=== PATIENT | female | born 1935 | race African-American/Black ===

== ENCOUNTER 2018-03-04 17:03 | Emergency (ER) | payer SELFPAY ==
[~2018-03-04] VITALS: Ht 160 cm; Wt 57.0 kg
[~2018-03-04 17:03] MED LIST: CALC1TAB17 PO; CLOP75TA33 PO; EZET1TAB36 PO; FEXO30OR PO; HYDR25TA PO; METO-539 PO; OMEP20CA10 PO; PANT40TA4 PO; POTA20TA34 PO; SUCR1TAB PO
[2018-03-04] MEDS ORDERED: LANS30CA55 PO (17:16)
[2018-03-04 18:09] LABS: BASOPHILS % 0.3 % (0.0-2.0); EOSINOPHILS % 0.1 % (0.0-5.0); HEMATOCRIT. 41.9 % (36.0-48.0); HEMOGLOBIN. 14.5 g/dL (12.0-16.0); LYMPHOCYTES % 10.7 % (20.0-50.0); MEAN CORPUSCULAR HEMOGLOBIN 32.5 pg (28.0-32.0); MEAN CORPUSCULAR VOLUME 94.3 fL (81.0-99.0); MEAN PLATELET VOLUME 7.8 fl (7.4-10.4); MONOCYTES % 7.1 % (2.0-8.0); NEUTROPHILS % 81.8 % (40.0-76.0); PLATELET 226 x1000/uL (130-400); RED BLOOD CELL COUNT 4.44 mill/uL (4.2-5.4); RED CELL DISTRIBUTION WIDTH 13.5 % (11.6-14.6)
[2018-03-04 18:13] LABS: INR 1.1; PARTIAL THROMBOPLASTIN TIME 28.5 sec (23.4-31.0)
[2018-03-04 19:04] LABS: CLARITY URINE CLOUDY (CLEAR); COLOR URINE YELLOW (YELLOW); KETONES URINE TRACE (NEGATIVE); LEUKOCYTE ESTERASE URINE 1+ (NEGATIVE); NITRITE URINE NEGATIVE (NEGATIVE); OCCULT BLOOD URINE 1+ (NEGATIVE); PROTEIN URINE NEGATIVE (NEGATIVE); SPECIFIC GRAVITY URINE 1.015 (1.005-1.030); UROBILINOGEN URINE 0.2 E.U./dL (0.2-1.0)
[2018-03-04 19:38] LABS: CHLORIDE 100 mEq/L (98-107)
[2018-03-04] MEDS ORDERED: ACETAMINOPHEN 325MG TABLET PO ONE (20:15)
[2018-03-04 20:28] VITALS: BP 166/70
== END 2018-03-04 20:31 | disposition home or self-care (01) ==
LOC: ER 17:03
DX: K62.5 Hemorrhage of anus and rectum (principal); E78.00 Pure hypercholesterolemia, unspecified; I25.10 Atherosclerotic heart disease of native coronary artery without angina pectoris; I10 Essential (primary) hypertension; K21.9 Gastro-esophageal reflux disease without esophagitis; Z95.5 Presence of coronary angioplasty implant and graft; Z88.0 Allergy status to penicillin; Z88.8 Allergy status to other drugs, medicaments and biological substances; Z91.041 Radiographic dye allergy status
CPT/HCPCS: 36415; 71045; 80053; 81003; 83690; 83880; 84484; 85025; 85610; 85730; 86850; 86900; 93005; 99285

== ENCOUNTER 2019-08-24 18:43 | Inpatient (IN) | payer BC ==
[~2019-08-24] VITALS: Ht 160 cm; Wt 52.2 kg
[~2019-08-24 18:43] MED LIST changes: +LANS30CA55 PO; -OMEP20CA10 PO; +OMEP20CA5 PO
[2019-08-24] MEDS ORDERED: IPRATROPIUM/ALBUTEROL 0.5-3(2.5)MG/3ML NEB HHN ONE (20:00)
[2019-08-24 21:58] LABS: INR 1.1; PARTIAL THROMBOPLASTIN TIME 29.9 sec (23.4-31.0); PROTHROMBIN TIME 11.4 sec (9.6-11.0)
[2019-08-24] MEDS ORDERED: LEVOFLOXACIN 750MG PREMIX 150 ML IV ONE (22:00)
[2019-08-24 22:45] LABS: BASOPHILS % 0.4 % (0.0-2.0); EOSINOPHILS % 0.6 % (0.0-5.0); HEMATOCRIT. 44.1 % (36.0-48.0); HEMOGLOBIN. 15.3 g/dL (12.0-16.0); LYMPHOCYTES % 37.1 % (20.0-50.0); MEAN CORPUSCULAR HEMOGLOBIN 32.1 pg (28.0-32.0); MEAN CORPUSCULAR VOLUME 92.5 fL (81.0-99.0); MEAN PLATELET VOLUME 6.9 fl (7.4-10.4); MONOCYTES % 10.3 % (2.0-8.0); NEUTROPHILS % 51.6 % (40.0-76.0); PLATELET 339 x1000/uL (130-400); RED BLOOD CELL COUNT 4.77 mill/uL (4.2-5.4); RED CELL DISTRIBUTION WIDTH 13.5 % (11.6-14.6)
[2019-08-24 22:47] LABS: CLARITY URINE CLEAR (CLEAR); COLOR URINE YELLOW (YELLOW); KETONES URINE 1+ (NEGATIVE); LEUKOCYTE ESTERASE URINE TRACE (NEGATIVE); NITRITE URINE NEGATIVE (NEGATIVE); OCCULT BLOOD URINE NEGATIVE (NEGATIVE); PH URINE 6.5 (4.5-8.0); PROTEIN URINE NEGATIVE (NEGATIVE); SPECIFIC GRAVITY URINE 1.012 (1.005-1.030); UROBILINOGEN URINE 0.2 E.U./dL (0.2-1.0)
[2019-08-24 22:47] LABS: CHLORIDE 87 mEq/L (98-107)
[2019-08-25 00:33] VITALS: BP 164/71
[2019-08-25] MEDS ORDERED: ACETAMINOPHEN 325MG TABLET PO PRN (02:00)
[2019-08-25] MEDS: POTASSIUM CHLORIDE 20MEQ TABLET SR PO SCH ×2 (02:32→09:48)
[2019-08-25] MEDS: CLONIDINE 0.1MG TABLET PO PRN (02:33)
[2019-08-25] MEDS ORDERED: VYT1080 MT (03:20)
[2019-08-25] MEDS: SUCRALFATE 1G TABLET PO SCH ×4 (06:25→20:40)
[2019-08-25] MEDS: PANTOPRAZOLE 40MG DR TABLET PO SCH (06:26)
[2019-08-25 08:00] VITALS: BP 114/48
[2019-08-25] MEDS: IPRATROPIUM/ALBUTEROL 0.5-3(2.5)MG/3ML NEB HHN SCH ×4 (09:11→20:00)
[2019-08-25] MEDS: CLOPIDOGREL 75MG TABLET PO SCH (09:49)
[2019-08-25] MEDS: METOPROLOL TARTRATE 50MG TABLET PO SCH ×2 (09:49→20:40)
[2019-08-25] MEDS: ENOXAPARIN 40MG/0.4ML SYR SUBCUT SCH (09:51)
[2019-08-25 09:59] LABS: BASOPHILS % 0.4 % (0.0-2.0); EOSINOPHILS % 0.4 % (0.0-5.0); HEMATOCRIT. 39.4 % (36.0-48.0); HEMOGLOBIN. 13.9 g/dL (12.0-16.0); LYMPHOCYTES % 28.5 % (20.0-50.0); MEAN CORPUSCULAR HEMOGLOBIN 32.3 pg (28.0-32.0); MEAN CORPUSCULAR VOLUME 91.7 fL (81.0-99.0); MEAN PLATELET VOLUME 6.9 fl (7.4-10.4); MONOCYTES % 12.8 % (2.0-8.0); NEUTROPHILS % 57.9 % (40.0-76.0); PLATELET 311 x1000/uL (130-400); RED CELL DISTRIBUTION WIDTH 13.2 % (11.6-14.6)
[2019-08-25 10:12] LABS: CHLORIDE 89 mEq/L (98-107)
[2019-08-25 10:18] LABS: LDL CHOLESTEROL 49 mg/dL (5-100)
[2019-08-25 10:19] LABS: HDL CHOLESTEROL 68 mg/dL (40-59)
[2019-08-25] MEDS: LEVOFLOXACIN 250MG TABLET PO SCH (14:41)
[2019-08-25] MEDS: SODIUM CHLORIDE 0.9% 1,000 ML IV SCH (18:02)
[2019-08-25 18:07] LABS: CHLORIDE 93 mEq/L (98-107)
[2019-08-25 20:00] VITALS: BP 135/56
[2019-08-25] MEDS: ATORVASTATIN CALCIUM 40MG TABLET PO SCH (20:40)
[2019-08-26] VITALS: BP 132/51
[2019-08-26 04:00] VITALS: BP 125/52
[2019-08-26] MEDS: SODIUM CHLORIDE 0.9% 1,000 ML IV SCH ×2 (04:04→17:00)
[2019-08-26] MEDS: IPRATROPIUM/ALBUTEROL 0.5-3(2.5)MG/3ML NEB HHN SCH ×6 (04:50→22:05)
[2019-08-26] MEDS: PANTOPRAZOLE 40MG DR TABLET PO SCH (06:34)
[2019-08-26] MEDS: SUCRALFATE 1G TABLET PO SCH ×4 (06:34→21:17)
[2019-08-26 08:00] VITALS: BP 154/60
[2019-08-26] MEDS: POTASSIUM CHLORIDE 20MEQ TABLET SR PO SCH (08:02)
[2019-08-26] MEDS: ENOXAPARIN 40MG/0.4ML SYR SUBCUT SCH (08:02)
[2019-08-26] MEDS: CLOPIDOGREL 75MG TABLET PO SCH (08:02)
[2019-08-26] MEDS: METOPROLOL TARTRATE 50MG TABLET PO SCH (08:03)
[2019-08-26] MEDS: LEVOFLOXACIN 250MG TABLET PO SCH (11:07)
[2019-08-26 11:24] LABS: BG BASE EXCESS -4.2 mmol/L (-2.0-2.0); BG CARBOXYHEMOGLOBIN 0.4 % (0.5-1.5); BG DEOXYHEMOGLOBIN 2.4 % (0.0-5.0); BG FRACTION INSPIRED OXYGEN 21; BG HCO3 ACT 18.8 mmol/L (22.0-26.0); BG METHEMOGLOBIN 0.1 % (0.0-1.5); BG OXYGEN SATURATION 97.6 % (92.0-98.5); BG OXYHEMOGLOBIN 97.1 % (94.0-97.0); BG PCO2 28.9 mmHg (35.0-45.0); BG PO2 100.4 mmHg (75.0-100.0); BG SAMPLE SITE LEFT BRACHIAL; BG TOTAL HEMOGLOBIN 13.9 g/dL (12.0-18.0); BG VENT MODE ROOM AIR
[2019-08-26 12:00] VITALS: BP 158/53
[2019-08-26] MEDS ORDERED: LIDOCAINE HCL/PF 1% 2ML VIAL ONE (13:32)
[2019-08-26] MEDS ORDERED: AMLODIPINE 5MG TABLET PO NR (15:30)
[2019-08-26 16:00] VITALS: BP 151/58
[2019-08-26] MEDS ORDERED: NAPROXEN 250MG TABLET PO NR (16:00)
[2019-08-26 16:18] LABS: CHLORIDE 101 mEq/L (98-107)
[2019-08-26 16:22] LABS: BASOPHILS % 0.7 % (0.0-2.0); EOSINOPHILS % 3.3 % (0.0-5.0); HEMATOCRIT. 39.2 % (36.0-48.0); HEMOGLOBIN. 13.4 g/dL (12.0-16.0); LYMPHOCYTES % 42.4 % (20.0-50.0); MEAN CORPUSCULAR HEMOGLOBIN 32.2 pg (28.0-32.0); MEAN CORPUSCULAR VOLUME 94.5 fL (81.0-99.0); MEAN PLATELET VOLUME 7.2 fl (7.4-10.4); NEUTROPHILS % 40.6 % (40.0-76.0); PLATELET 159 x1000/uL (130-400); RED BLOOD CELL COUNT 4.15 mill/uL (4.2-5.4); RED CELL DISTRIBUTION WIDTH 13.4 % (11.6-14.6)
[2019-08-26] MEDS ORDERED: METHYLPREDNISOLONE SOD SUCC 40 MG/ML VIAL IV SCH (17:00)
[2019-08-26 20:37] VITALS: BP 163/55
[2019-08-26] MEDS: ATORVASTATIN CALCIUM 40MG TABLET PO SCH (21:17)
[2019-08-26] MEDS: NAPROXEN 250MG TABLET PO SCH (21:18)
[2019-08-26] MEDS: METOPROLOL TARTRATE 25MG TABLET PO SCH (21:19)
[2019-08-27] MEDS: CLONIDINE 0.1MG TABLET PO PRN (00:26)
[2019-08-27 00:41] VITALS: BP 164/65
[2019-08-27 04:00] VITALS: BP 128/46
[2019-08-27] MEDS: SODIUM CHLORIDE 0.9% 1,000 ML IV SCH (07:06)
[2019-08-27] MEDS: SUCRALFATE 1G TABLET PO SCH ×2 (07:07→11:46)
[2019-08-27 07:19] LABS: HEMATOCRIT 37.5 % (36.0-48.0); HEMOGLOBIN 13.1 g/dL (12.0-16.0); MEAN CORPUSCULAR HEMOGLOBIN 32.2 pg (28.0-32.0); MEAN CORPUSCULAR VOLUME 92.3 fL (81.0-99.0); PLATELET 273 x1000/uL (130-400); RED BLOOD CELL COUNT 4.06 mill/uL (4.2-5.4); RED CELL DISTRIBUTION WIDTH 13.4 % (11.6-14.6)
[2019-08-27 07:23] LABS: CHLORIDE 106 mEq/L (98-107)
[2019-08-27] MEDS ORDERED: AMLODIPINE 5MG TABLET PO SCH (09:00)
[2019-08-27] MEDS ORDERED: FAMOTIDINE 20MG TABLET PO SCH (09:00)
[2019-08-27] MEDS ORDERED: GUAIFENESIN 200MG/10ML SUGAR FREE UDC PO PRN (09:00)
[2019-08-27] MEDS: METOPROLOL TARTRATE 25MG TABLET PO SCH (09:00)
[2019-08-27] MEDS: IPRATROPIUM/ALBUTEROL 0.5-3(2.5)MG/3ML NEB HHN SCH ×2 (09:18→13:18)
[2019-08-27] MEDS: POTASSIUM CHLORIDE 20MEQ TABLET SR PO SCH (09:28)
[2019-08-27] MEDS: CLOPIDOGREL 75MG TABLET PO SCH (09:29)
[2019-08-27] MEDS: ENOXAPARIN 40MG/0.4ML SYR SUBCUT SCH (09:29)
[2019-08-27] MEDS: NAPROXEN 250MG TABLET PO SCH (09:29)
[2019-08-27] MEDS: LEVOFLOXACIN 250MG TABLET PO SCH (11:46)
[2019-08-27 13:49] VITALS: BP 110/61
== END 2019-08-27 15:45 | disposition home or self-care (01) | DRG 641 ==
LOC: ER 18:43 → 6WST 22:28 → EDBEDREQ 22:30 → EDBEDREQTM 22:30 → ENRESERV 22:36
PROVIDERS: ADMIT Internal Medicine; ATTEND Internal Medicine
DX: E87.1 Hypo-osmolality and hyponatremia (principal); J06.9 Acute upper respiratory infection, unspecified; R07.89 Other chest pain; E78.00 Pure hypercholesterolemia, unspecified; E78.5 Hyperlipidemia, unspecified; E87.6 Hypokalemia; I10 Essential (primary) hypertension; I25.10 Atherosclerotic heart disease of native coronary artery without angina pectoris; K21.9 Gastro-esophageal reflux disease without esophagitis; K80.20 Calculus of gallbladder without cholecystitis without obstruction; T50.2X5A Adverse effect of carbonic-anhydrase inhibitors, benzothiadiazides and other diuretics, initial encounter; Y92.89 Other specified places as the place of occurrence of the external cause; Z79.899 Other long term (current) drug therapy; Z88.0 Allergy status to penicillin; Z88.8 Allergy status to other drugs, medicaments and biological substances; Z91.041 Radiographic dye allergy status
CPT/HCPCS: 36415; 36600; 71045; 71250; 80048; 80061; 81003; 82164; 82375; 82805; 83880; 84484; 85027; 93005; 93306; 93970; 96365; 99285; J1650; J1956; J3490; J7030; J7620

== ENCOUNTER 2022-06-23 14:40 | Inpatient (IN) | payer BC, MEDICARE ==
[~2022-06-23] VITALS: Ht 160 cm; Wt 45.8 kg
[~2022-06-23 14:40] MED LIST changes: -HYDR25TA PO; -METO-539 PO; +OMEP20CA14 PO; -OMEP20CA5 PO; -PANT40TA4 PO; +PANT40TA51 PO; -POTA20TA34 PO
[2022-06-23] MEDS ORDERED: MORPHINE SULFATE 4 MG/ML CPJ (NOT FOR IM USE) IV STA (16:56)
[2022-06-23] MEDS ORDERED: ONDANSETRON HCL 4MG/2ML INJ IV STA (16:56)
[2022-06-23] MEDS ORDERED: SODIUM CHLORIDE 0.9% 1,000 ML IV ONE (17:00)
[2022-06-23 18:00] LABS: PARTIAL THROMBOPLASTIN TIME 30.8 sec (23.4-31.0); PROTHROMBIN TIME 10.9 sec (9.6-11.0)
[2022-06-23 18:04] LABS: HEMOGLOBIN. 13.8 g/dL (12.0-16.0); MEAN CORPUSCULAR VOLUME 94.9 fL (81.0-99.0); MEAN PLATELET VOLUME 7.5 fl (7.4-10.4); PLATELET 234 x1000/uL (130-400); RED BLOOD CELL COUNT 4.32 mill/uL (4.2-5.4); RED CELL DISTRIBUTION WIDTH 13.4 % (11.6-14.6)
[2022-06-23 18:14] LABS: CHLORIDE 102 mEq/L (98-107)
[2022-06-23 20:08] LABS: PLATELET ESTIMATE NORMAL
[2022-06-24 01:30] VITALS: BP 149/66
[2022-06-24 04:00] VITALS: BP 164/59
[2022-06-24] MEDS ORDERED: LATA2.5D14 EACHEYE (07:21)
[2022-06-24] MEDS ORDERED: HYDR-4133 MT (07:21)
[2022-06-24] MEDS ORDERED: METO-539 MT (07:22)
[2022-06-24] MEDS ORDERED: POTA-205 MT (07:23)
[2022-06-24] MEDS ORDERED: MULT-1146 PO (07:24)
[2022-06-24] MEDS ORDERED: AMLO5TAB88 MT (07:24)
[2022-06-24 08:00] VITALS: BP 165/72
[2022-06-24 12:00] VITALS: BP 153/77
[2022-06-24] MEDS ORDERED: DEXTROSE 50% WATER 50ML SYRINGE IV PRN (13:30)
[2022-06-24] MEDS ORDERED: SUCR1TAB PO (13:38)
[2022-06-24] MEDS: PANTOPRAZOLE 40MG DR TABLET PO SCH (14:27)
[2022-06-24] MEDS: AMLODIPINE 5MG TABLET PO SCH (14:28)
[2022-06-24] MEDS: ENOXAPARIN 30MG/0.3ML SYR SUBCUT SCH (14:30)
[2022-06-24] MEDS: INSULIN LISPRO 100 UNITS/ML SUBCUT SCH ×2 (17:50→21:00)
[2022-06-24] MEDS: BLOOD SUGAR DIAGNOSTIC STRIP TEST SCH ×2 (17:59→20:57)
[2022-06-24] MEDS: SUCRALFATE 1G TABLET PO SCH ×2 (18:03→20:57)
[2022-06-24] MEDS: HYDRALAZINE HCL 10MG TABLET PO SCH (18:03)
[2022-06-24 19:56] VITALS: BP 154/74
[2022-06-24] MEDS: METOPROLOL TARTRATE 50MG TABLET PO SCH (20:57)
[2022-06-25 00:18] VITALS: BP 183/83
[2022-06-25] MEDS ORDERED: HYDROCODONE/ACETAMINOPHEN 5/325MG TABLET PO PRN (04:45)
[2022-06-25] MEDS ORDERED: NALOXONE HCL 0.4MG/ML VIAL IV PRN (04:45)
[2022-06-25 06:25] VITALS: BP 173/68
[2022-06-25] MEDS: PANTOPRAZOLE 40MG DR TABLET PO SCH (06:25)
[2022-06-25] MEDS: BLOOD SUGAR DIAGNOSTIC STRIP TEST SCH ×4 (06:25→21:00)
[2022-06-25] MEDS: INSULIN LISPRO 100 UNITS/ML SUBCUT SCH ×4 (07:50→21:00)
[2022-06-25 08:00] VITALS: BP 136/67
[2022-06-25] MEDS: DOCUSATE SODIUM 100MG CAPSULE PO SCH ×2 (09:31→18:38)
[2022-06-25] MEDS: SUCRALFATE 1G TABLET PO SCH ×4 (09:32→21:48)
[2022-06-25] MEDS: METOPROLOL TARTRATE 50MG TABLET PO SCH ×2 (09:32→21:49)
[2022-06-25] MEDS: HYDRALAZINE HCL 10MG TABLET PO SCH (09:32)
[2022-06-25] MEDS: AMLODIPINE 5MG TABLET PO SCH ×2 (09:32→21:48)
[2022-06-25 12:00] VITALS: BP 125/60
[2022-06-25] MEDS: HYDROCODONE/ACETAMINOPHEN 5/325MG TABLET PO PRN ×2 (12:03→21:48)
[2022-06-25 12:26] LABS: BASOPHILS % 0.3 % (0.0-2.0); HEMATOCRIT. 41.2 % (36.0-48.0); HEMOGLOBIN. 13.9 g/dL (12.0-16.0); LYMPHOCYTES % 20.4 % (20.0-50.0); MEAN CORPUSCULAR HEMOGLOBIN 31.9 pg (28.0-32.0); MEAN CORPUSCULAR VOLUME 94.2 fL (81.0-99.0); MEAN PLATELET VOLUME 7.6 fl (7.4-10.4); MONOCYTES % 12.3 % (2.0-8.0); PLATELET 243 x1000/uL (130-400); RED BLOOD CELL COUNT 4.38 mill/uL (4.2-5.4); RED CELL DISTRIBUTION WIDTH 13.5 % (11.6-14.6)
[2022-06-25 12:49] LABS: CHLORIDE 101 mEq/L (98-107)
[2022-06-25] MEDS: ENOXAPARIN 30MG/0.3ML SYR SUBCUT SCH (14:41)
[2022-06-25 16:00] VITALS: BP 118/51
[2022-06-25] MEDS: HYDRALAZINE HCL 25MG TABLET PO SCH (18:38)
[2022-06-26] MEDS: DIPHENHYDRAMINE 25MG CAPSULE PO PRN ×2 (01:48→21:49)
[2022-06-26] MEDS: PANTOPRAZOLE 40MG DR TABLET PO SCH (06:08)
[2022-06-26] MEDS: BLOOD SUGAR DIAGNOSTIC STRIP TEST SCH ×4 (06:08→21:49)
[2022-06-26] MEDS: HYDROCODONE/ACETAMINOPHEN 5/325MG TABLET PO PRN ×2 (06:08→13:04)
[2022-06-26] MEDS: INSULIN LISPRO 100 UNITS/ML SUBCUT SCH ×4 (07:50→21:00)
[2022-06-26] MEDS: METOPROLOL TARTRATE 50MG TABLET PO SCH ×2 (09:24→21:49)
[2022-06-26] MEDS: AMLODIPINE 5MG TABLET PO SCH ×2 (09:24→21:49)
[2022-06-26] MEDS: SUCRALFATE 1G TABLET PO SCH ×4 (09:24→21:49)
[2022-06-26] MEDS: HYDRALAZINE HCL 25MG TABLET PO SCH ×2 (09:25→18:03)
[2022-06-26] MEDS: DOCUSATE SODIUM 100MG CAPSULE PO SCH ×2 (09:33→18:03)
[2022-06-26 12:00] VITALS: BP 126/54
[2022-06-26] MEDS: ENOXAPARIN 30MG/0.3ML SYR SUBCUT SCH (12:56)
[2022-06-26 16:00] VITALS: BP 135/67
[2022-06-26 20:00] VITALS: BP 136/68
[2022-06-27] VITALS: BP 165/70
[2022-06-27] MEDS: HYDROCODONE/ACETAMINOPHEN 5/325MG TABLET PO PRN (01:43)
[2022-06-27 04:00] VITALS: BP 147/66
[2022-06-27] MEDS: BLOOD SUGAR DIAGNOSTIC STRIP TEST SCH ×4 (06:01→21:24)
[2022-06-27] MEDS: INSULIN LISPRO 100 UNITS/ML SUBCUT SCH ×4 (07:50→21:00)
[2022-06-27 08:00] VITALS: BP 146/64
[2022-06-27] MEDS: HYDRALAZINE HCL 25MG TABLET PO SCH ×2 (08:45→18:28)
[2022-06-27] MEDS: SUCRALFATE 1G TABLET PO SCH ×4 (08:45→21:00)
[2022-06-27] MEDS: DOCUSATE SODIUM 100MG CAPSULE PO SCH ×2 (08:45→18:27)
[2022-06-27] MEDS: METOPROLOL TARTRATE 50MG TABLET PO SCH ×2 (08:45→21:00)
[2022-06-27] MEDS: FAMOTIDINE 20MG TABLET PO SCH (08:46)
[2022-06-27] MEDS: AMLODIPINE 5MG TABLET PO SCH ×2 (08:46→21:00)
[2022-06-27 12:00] VITALS: BP 131/64
[2022-06-27] MEDS: ENOXAPARIN 30MG/0.3ML SYR SUBCUT SCH (13:19)
[2022-06-27 16:00] VITALS: BP 132/65
[2022-06-27 16:43] LABS: BASOPHILS % 0.3 % (0.0-2.0); EOSINOPHILS % 3.8 % (0.0-5.0); HEMATOCRIT. 38.7 % (36.0-48.0); HEMOGLOBIN. 13.1 g/dL (12.0-16.0); LYMPHOCYTES % 26.5 % (20.0-50.0); MEAN CORPUSCULAR VOLUME 94.4 fL (81.0-99.0); MEAN PLATELET VOLUME 7.2 fl (7.4-10.4); MONOCYTES % 13.7 % (2.0-8.0); NEUTROPHILS % 55.7 % (40.0-76.0); PLATELET 245 x1000/uL (130-400); RED BLOOD CELL COUNT 4.09 mill/uL (4.2-5.4); RED CELL DISTRIBUTION WIDTH 13.5 % (11.6-14.6)
[2022-06-27 17:00] LABS: CHLORIDE 102 mEq/L (98-107)
[2022-06-27 20:00] VITALS: BP 131/66
[2022-06-27] MEDS: DIPHENHYDRAMINE 25MG CAPSULE PO PRN (23:49)
[2022-06-28] VITALS (7 sets, daily range): BP systolic 121–183; BP diastolic 64–87
[2022-06-28 04:45] LABS: BASOPHILS % 0.5 % (0.0-2.0); EOSINOPHILS % 4.2 % (0.0-5.0); HEMATOCRIT. 42.3 % (36.0-48.0); HEMOGLOBIN. 14.5 g/dL (12.0-16.0); LYMPHOCYTES % 26.9 % (20.0-50.0); MEAN CORPUSCULAR HEMOGLOBIN 32.3 pg (28.0-32.0); MEAN CORPUSCULAR VOLUME 94.3 fL (81.0-99.0); MEAN PLATELET VOLUME 7.3 fl (7.4-10.4); MONOCYTES % 12.9 % (2.0-8.0); NEUTROPHILS % 55.5 % (40.0-76.0); PLATELET 242 x1000/uL (130-400); RED BLOOD CELL COUNT 4.48 mill/uL (4.2-5.4); RED CELL DISTRIBUTION WIDTH 13.6 % (11.6-14.6)
[2022-06-28 04:52] LABS: CHLORIDE 103 mEq/L (98-107)
[2022-06-28] MEDS: BLOOD SUGAR DIAGNOSTIC STRIP TEST SCH ×4 (06:06→20:18)
[2022-06-28] MEDS: INSULIN LISPRO 100 UNITS/ML SUBCUT SCH ×4 (07:50→20:17)
[2022-06-28] MEDS ORDERED: POTASSIUM CHLORIDE 20MEQ/PACKET PO NR (08:30)
[2022-06-28] MEDS: SUCRALFATE 1G TABLET PO SCH ×4 (08:33→20:17)
[2022-06-28] MEDS: HYDRALAZINE HCL 25MG TABLET PO SCH ×2 (08:41→17:49)
[2022-06-28] MEDS: AMLODIPINE 5MG TABLET PO SCH ×2 (08:41→20:17)
[2022-06-28] MEDS: METOPROLOL TARTRATE 50MG TABLET PO SCH ×2 (08:41→20:17)
[2022-06-28] MEDS: FAMOTIDINE 20MG TABLET PO SCH (08:41)
[2022-06-28] MEDS: DOCUSATE SODIUM 100MG CAPSULE PO SCH ×2 (08:42→17:48)
[2022-06-28] MEDS: ENOXAPARIN 30MG/0.3ML SYR SUBCUT SCH (13:22)
[2022-06-29] VITALS: BP 150/70
[2022-06-29 04:00] VITALS: BP 154/72
[2022-06-29] MEDS: BLOOD SUGAR DIAGNOSTIC STRIP TEST SCH ×4 (06:08→21:18)
[2022-06-29] MEDS ORDERED: VANCOMYCIN HCL 1 GM/VIAL ONE (07:19)
[2022-06-29 07:20] LABS: HEMATOCRIT 39.3 % (36.0-48.0); HEMOGLOBIN 13.6 g/dL (12.0-16.0); MEAN CORPUSCULAR HEMOGLOBIN 32.3 pg (28.0-32.0); MEAN CORPUSCULAR VOLUME 93.6 fL (81.0-99.0); PLATELET 283 x1000/uL (130-400); RED CELL DISTRIBUTION WIDTH 13.7 % (11.6-14.6)
[2022-06-29] MEDS ORDERED: LIDOCAINE HCL 1% 20ML VIAL (Pyxis) INJ ONE (07:20)
[2022-06-29] MEDS ORDERED: ETOMIDATE 2MG/ML 10ML VIAL IV ONE (07:39)
[2022-06-29] MEDS ORDERED: SUCCINYLCHOLINE CHLORIDE 200MG/10ML IV ONE (07:39)
[2022-06-29] MEDS ORDERED: ONDANSETRON HCL 4MG/2ML INJ ONE (07:39)
[2022-06-29] MEDS ORDERED: CEFAZOLIN SODIUM 1000MG/VIAL ONE (07:39)
[2022-06-29] MEDS ORDERED: GLYCOPYRROLATE 0.2 MG/ML 2ML VIAL ONE ×2 (07:39→09:03)
[2022-06-29] MEDS ORDERED: DEXAMETHASONE 4MG/ML 1ML VIAL ONE (07:39)
[2022-06-29] MEDS ORDERED: ROCURONIUM BROMIDE 10MG/ML VIAL 5ML IV ONE (07:39)
[2022-06-29] MEDS ORDERED: NEOSTIGMINE METHYLSULFATE 1MG/ML 10 ML VIAL ONE (07:39)
[2022-06-29] MEDS ORDERED: FENTANYL CITRATE/PF 50MCG/ML 2ML VIAL ONE (07:40)
[2022-06-29] MEDS ORDERED: MIDAZOLAM HCL 2 MG/2 ML VIAL ONE (07:40)
[2022-06-29] MEDS ORDERED: ONDANSETRON HCL 4MG/2ML INJ IV PRN ×2 (07:45→08:00)
[2022-06-29] MEDS ORDERED: MEPERIDINE HCL/PF 25MG/ML CPJ IV PRN (07:45)
[2022-06-29] MEDS ORDERED: LABETALOL 5MG/ML SYR 20 MG/4 ML SYRINGE IV PRN (07:45)
[2022-06-29] MEDS ORDERED: HYDROMORPHONE HCL/PF 2MG/ML CPJ IV PRN ×2 (07:45→08:00)
[2022-06-29] MEDS: INSULIN LISPRO 100 UNITS/ML SUBCUT SCH ×4 (07:50→21:00)
[2022-06-29] MEDS ORDERED: HYDROCODONE/ACETAMINOPHEN 5/325MG TABLET PO PRN (08:00)
[2022-06-29] MEDS ORDERED: CLINDAMYCIN 900 MG PREMIX 50 ML IV ONE (08:07)
[2022-06-29 08:09] LABS: CHLORIDE 101 mEq/L (98-107)
[2022-06-29] MEDS ORDERED: HYDROMORPHONE HCL/PF 2MG/ML CPJ ONE (08:31)
[2022-06-29] MEDS: HYDRALAZINE HCL 25MG TABLET PO SCH ×2 (09:00→18:23)
[2022-06-29] MEDS: SUCRALFATE 1G TABLET PO SCH ×4 (09:00→21:18)
[2022-06-29] MEDS ORDERED: NALOXONE HCL 0.4MG/ML VIAL IV PRN (11:15)
[2022-06-29 12:00] VITALS: BP 109/64
[2022-06-29] MEDS: METOPROLOL TARTRATE 50MG TABLET PO SCH ×2 (12:31→21:00)
[2022-06-29] MEDS: AMLODIPINE 5MG TABLET PO SCH ×2 (12:32→21:00)
[2022-06-29] MEDS: DOCUSATE SODIUM 100MG CAPSULE PO SCH ×2 (12:32→18:22)
[2022-06-29] MEDS: FAMOTIDINE 20MG TABLET PO SCH (12:32)
[2022-06-29] MEDS: ENOXAPARIN 30MG/0.3ML SYR SUBCUT SCH (12:39)
[2022-06-29 16:00] VITALS: BP 121/61
[2022-06-29] MEDS ORDERED: CLINDAMYCIN 600 MG in DEXTROSE 5% WATER 50 ML IV SCH (16:00)
[2022-06-29] MEDS: CLINDAMYCIN 600MG PREMIX 50 ML IV SCH (18:22)
[2022-06-29] MEDS: HYDROCODONE/ACETAMINOPHEN 5/325MG TABLET PO PRN (18:23)
[2022-06-29 20:00] VITALS: BP 107/52
[2022-06-30] VITALS: BP 124/61
[2022-06-30] MEDS: CLINDAMYCIN 600MG PREMIX 50 ML IV SCH ×3 (01:28→16:45)
[2022-06-30 04:00] VITALS: BP 145/63
[2022-06-30 07:40] LABS: BASOPHILS % 0.2 % (0.0-2.0); EOSINOPHILS % 0.2 % (0.0-5.0); HEMATOCRIT. 38.9 % (36.0-48.0); HEMOGLOBIN. 13.2 g/dL (12.0-16.0); LYMPHOCYTES % 13.1 % (20.0-50.0); MEAN CORPUSCULAR HEMOGLOBIN 32.5 pg (28.0-32.0); MEAN CORPUSCULAR VOLUME 95.6 fL (81.0-99.0); MEAN PLATELET VOLUME 7.5 fl (7.4-10.4); MONOCYTES % 13.1 % (2.0-8.0); NEUTROPHILS % 73.4 % (40.0-76.0); PLATELET 266 x1000/uL (130-400); RED BLOOD CELL COUNT 4.07 mill/uL (4.2-5.4); RED CELL DISTRIBUTION WIDTH 13.6 % (11.6-14.6)
[2022-06-30] MEDS: INSULIN LISPRO 100 UNITS/ML SUBCUT SCH ×4 (07:50→21:00)
[2022-06-30] MEDS: BLOOD SUGAR DIAGNOSTIC STRIP TEST SCH ×4 (07:50→20:47)
[2022-06-30 08:00] VITALS: BP 144/61
[2022-06-30 08:34] LABS: CHLORIDE 102 mEq/L (98-107)
[2022-06-30] MEDS: DOCUSATE SODIUM 100MG CAPSULE PO SCH ×2 (08:46→16:44)
[2022-06-30] MEDS: FAMOTIDINE 20MG TABLET PO SCH (08:46)
[2022-06-30] MEDS: HYDRALAZINE HCL 25MG TABLET PO SCH ×2 (08:46→16:45)
[2022-06-30] MEDS: METOPROLOL TARTRATE 50MG TABLET PO SCH ×2 (08:46→20:47)
[2022-06-30] MEDS: SUCRALFATE 1G TABLET PO SCH ×4 (08:47→20:47)
[2022-06-30] MEDS: AMLODIPINE 5MG TABLET PO SCH ×2 (08:47→20:46)
[2022-06-30 12:00] VITALS: BP 94/59
[2022-06-30] MEDS: ENOXAPARIN 30MG/0.3ML SYR SUBCUT SCH (14:04)
[2022-06-30] MEDS: HYDROCODONE/ACETAMINOPHEN 5/325MG TABLET PO PRN (14:04)
[2022-06-30 16:00] VITALS: BP 121/58
[2022-06-30 20:00] VITALS: BP 122/78
[2022-07-01] VITALS: BP 149/64
[2022-07-01] MEDS: HYDROCODONE/ACETAMINOPHEN 5/325MG TABLET PO PRN ×3 (00:31→12:40)
[2022-07-01 04:00] VITALS: BP 99/61
[2022-07-01] MEDS: BLOOD SUGAR DIAGNOSTIC STRIP TEST SCH ×4 (06:34→20:30)
[2022-07-01 07:24] LABS: CHLORIDE 99 mEq/L (98-107)
[2022-07-01 07:25] LABS: BASOPHILS % 0.4 % (0.0-2.0); EOSINOPHILS % 2.5 % (0.0-5.0); HEMATOCRIT. 38.1 % (36.0-48.0); HEMOGLOBIN. 12.8 g/dL (12.0-16.0); LYMPHOCYTES % 22.5 % (20.0-50.0); MEAN CORPUSCULAR VOLUME 95.4 fL (81.0-99.0); MONOCYTES % 13.8 % (2.0-8.0); NEUTROPHILS % 60.8 % (40.0-76.0); RED CELL DISTRIBUTION WIDTH 13.7 % (11.6-14.6)
[2022-07-01] MEDS: INSULIN LISPRO 100 UNITS/ML SUBCUT SCH ×4 (07:50→20:31)
[2022-07-01 08:00] VITALS: BP 148/67
[2022-07-01 08:49] LABS: PLATELET 259 x1000/uL (130-400)
[2022-07-01] MEDS: DOCUSATE SODIUM 100MG CAPSULE PO SCH ×2 (09:04→19:03)
[2022-07-01] MEDS: AMLODIPINE 5MG TABLET PO SCH ×2 (09:07→20:30)
[2022-07-01] MEDS: FAMOTIDINE 20MG TABLET PO SCH (09:07)
[2022-07-01] MEDS: HYDRALAZINE HCL 25MG TABLET PO SCH (09:07)
[2022-07-01] MEDS: SUCRALFATE 1G TABLET PO SCH ×4 (09:07→20:30)
[2022-07-01] MEDS: METOPROLOL TARTRATE 50MG TABLET PO SCH ×2 (09:07→20:30)
[2022-07-01 12:00] VITALS: BP 121/54
[2022-07-01] MEDS: ENOXAPARIN 30MG/0.3ML SYR SUBCUT SCH (14:29)
[2022-07-01 16:00] VITALS: BP 146/67
[2022-07-01] MEDS: HYDRALAZINE HCL 50MG TABLET PO SCH (19:05)
[2022-07-02] VITALS: BP 169/73
[2022-07-02 04:00] VITALS: BP 156/80
[2022-07-02] MEDS: INSULIN LISPRO 100 UNITS/ML SUBCUT SCH ×4 (06:53→20:57)
[2022-07-02] MEDS: BLOOD SUGAR DIAGNOSTIC STRIP TEST SCH ×4 (06:53→20:57)
[2022-07-02 07:56] LABS: BASOPHILS % 0.2 % (0.0-2.0); EOSINOPHILS % 3.9 % (0.0-5.0); HEMATOCRIT. 39.4 % (36.0-48.0); HEMOGLOBIN. 13.7 g/dL (12.0-16.0); LYMPHOCYTES % 22.8 % (20.0-50.0); MEAN CORPUSCULAR HEMOGLOBIN 32.8 pg (28.0-32.0); MEAN CORPUSCULAR VOLUME 94.1 fL (81.0-99.0); MEAN PLATELET VOLUME 7.7 fl (7.4-10.4); NEUTROPHILS % 61.1 % (40.0-76.0); PLATELET 308 x1000/uL (130-400); RED BLOOD CELL COUNT 4.19 mill/uL (4.2-5.4); RED CELL DISTRIBUTION WIDTH 13.6 % (11.6-14.6)
[2022-07-02 08:00] VITALS: BP 151/71
[2022-07-02] MEDS: DOCUSATE SODIUM 100MG CAPSULE PO SCH ×2 (08:53→18:08)
[2022-07-02] MEDS: HYDRALAZINE HCL 50MG TABLET PO SCH ×2 (08:53→18:07)
[2022-07-02] MEDS: SUCRALFATE 1G TABLET PO SCH ×4 (08:54→20:54)
[2022-07-02] MEDS: AMLODIPINE 5MG TABLET PO SCH ×2 (08:54→20:55)
[2022-07-02] MEDS: FAMOTIDINE 20MG TABLET PO SCH (08:54)
[2022-07-02] MEDS: METOPROLOL TARTRATE 50MG TABLET PO SCH ×2 (08:54→20:56)
[2022-07-02 10:11] LABS: CHLORIDE 102 mEq/L (98-107)
[2022-07-02 10:22] LABS: HDL CHOLESTEROL 57 mg/dL (40-59); LDL CHOLESTEROL 96 mg/dL (5-100)
[2022-07-02 12:00] VITALS: BP 137/75
[2022-07-02] MEDS: ENOXAPARIN 30MG/0.3ML SYR SUBCUT SCH (14:19)
[2022-07-02 16:00] VITALS: BP 104/53
[2022-07-02 20:00] VITALS: BP 130/51
[2022-07-02] MEDS: HYDROCODONE/ACETAMINOPHEN 5/325MG TABLET PO PRN (20:52)
[2022-07-03] VITALS: BP 122/62
[2022-07-03 04:00] VITALS: BP 138/71
[2022-07-03] MEDS: BLOOD SUGAR DIAGNOSTIC STRIP TEST SCH ×2 (07:20→12:20)
[2022-07-03] MEDS: INSULIN LISPRO 100 UNITS/ML SUBCUT SCH ×2 (07:50→12:50)
[2022-07-03 08:00] VITALS: BP 132/79
[2022-07-03] MEDS: FAMOTIDINE 20MG TABLET PO SCH (08:22)
[2022-07-03] MEDS: HYDRALAZINE HCL 50MG TABLET PO SCH (08:22)
[2022-07-03] MEDS: DOCUSATE SODIUM 100MG CAPSULE PO SCH (08:22)
[2022-07-03] MEDS: SUCRALFATE 1G TABLET PO SCH (08:22)
[2022-07-03] MEDS: AMLODIPINE 5MG TABLET PO SCH (08:23)
[2022-07-03] MEDS: METOPROLOL TARTRATE 50MG TABLET PO SCH (08:23)
[2022-07-03 12:00] VITALS: BP 124/59
[2022-07-03 14:16] VITALS: BP 127/76
== END 2022-07-03 15:00 | DRG 480 ==
LOC: ER 15:37 → MICUSO 22:06 → EDBEDREQ 22:09 → EDBEDREQTM 22:09 → 6EST 06-24 00:11
PROVIDERS: ADMIT Internal Medicine; ATTEND Internal Medicine
PROC: 0QH634Z Insertion of Internal Fixation Device into Right Upper Femur, Percutaneous Approach (ICD-10-PCS; principal; 2022-06-29)
DX: S72.011A Unspecified intracapsular fracture of right femur, initial encounter for closed fracture (principal); E43 Unspecified severe protein-calorie malnutrition; Z68.1 Body mass index [BMI] 19.9 or less, adult; E11.9 Type 2 diabetes mellitus without complications; E78.00 Pure hypercholesterolemia, unspecified; F03.A0 Unspecified dementia, mild, without behavioral disturbance, psychotic disturbance, mood disturbance, and anxiety; K21.9 Gastro-esophageal reflux disease without esophagitis; I25.10 Atherosclerotic heart disease of native coronary artery without angina pectoris; Z20.822 Contact with and (suspected) exposure to COVID-19; E78.5 Hyperlipidemia, unspecified; E88.09 Other disorders of plasma-protein metabolism, not elsewhere classified; E87.6 Hypokalemia; I11.9 Hypertensive heart disease without heart failure; Z88.0 Allergy status to penicillin; Z79.899 Other long term (current) drug therapy; Z87.11 Personal history of peptic ulcer disease; Z79.02 Long term (current) use of antithrombotics/antiplatelets; Z88.8 Allergy status to other drugs, medicaments and biological substances; Z95.5 Presence of coronary angioplasty implant and graft; W01.0XXA Fall on same level from slipping, tripping and stumbling without subsequent striking against object, initial encounter; Y93.89 Activity, other specified; Y92.89 Other specified places as the place of occurrence of the external cause; Y99.8 Other external cause status
CPT/HCPCS: 36415; 71045; 73502; 73552; 73700; 76000; 80048; 80053; 80061; 82962; 83036; 84484; 85025; 85027; 86850; 86900; 87426; 93005; 93306; 93970; 97116; 97162; 97166; 97530; 97535; 99285; C1713; J0330; J0690; J1100; J1170; J1650; J2250; J2270; J2310; J2405; J2710; J3010; J3370; J3490; J7030; J7060; Q0163; A4315

== ENCOUNTER 2022-10-13 18:56 | Emergency (ER) | payer BC, MEDICARE ==
[~2022-10-13] VITALS: Ht 170.2 cm; Wt 59.0 kg
[~2022-10-13 18:56] MED LIST changes: +AMLO5TAB88 MT; +HYDR-4133 MT; +LATA2.5D14 EACHEYE; +METO-539 MT; +MULT-1146 PO; +POTA-205 MT
[2022-10-13 20:00] VITALS: BP 124/54
[2022-10-13] MEDS ORDERED: DEXT 5%/LACTATED RINGERS 1,000 ML IV ONE (20:00)
[2022-10-13] MEDS ORDERED: ONDANSETRON HCL 4MG/2ML INJ IV ONE (20:00)
[2022-10-13] MEDS ORDERED: SODIUM CHLORIDE 0.9% 1,000 ML IV ONE (20:45)
[2022-10-13 21:36] LABS: BASOPHILS % 0.4 % (0.0-2.0); CHLORIDE 108 mEq/L (98-107); HEMATOCRIT. 39.4 % (36.0-48.0); HEMOGLOBIN. 13.6 g/dL (12.0-16.0); LYMPHOCYTES % 15.6 % (20.0-50.0); MEAN CORPUSCULAR HEMOGLOBIN 31.8 pg (28.0-32.0); MEAN CORPUSCULAR VOLUME 92.4 fL (81.0-99.0); MEAN PLATELET VOLUME 7.1 fl (7.4-10.4); MONOCYTES % 7.3 % (2.0-8.0); NEUTROPHILS % 75.7 % (40.0-76.0); PLATELET 262 x1000/uL (130-400); RED BLOOD CELL COUNT 4.26 mill/uL (4.2-5.4); RED CELL DISTRIBUTION WIDTH 13.7 % (11.6-14.6)
[2022-10-13 23:07] LABS: CLARITY URINE CLOUDY (CLEAR); COLOR URINE DARK YELLOW (YELLOW); KETONES URINE TRACE (NEGATIVE); LEUKOCYTE ESTERASE URINE 1+ (NEGATIVE); NITRITE URINE NEGATIVE (NEGATIVE); OCCULT BLOOD URINE NEGATIVE (NEGATIVE); PH URINE 6.5 (4.5-8.0); PROTEIN URINE TRACE (NEGATIVE); SPECIFIC GRAVITY URINE 1.023 (1.005-1.030)
[2022-10-14] MEDS ORDERED: CEPH500C2 MT (00:44)
== END 2022-10-14 01:15 | disposition home or self-care (01) ==
LOC: ER 18:56
DX: R55 Syncope and collapse (principal); I25.10 Atherosclerotic heart disease of native coronary artery without angina pectoris; F03.90 Unspecified dementia, unspecified severity, without behavioral disturbance, psychotic disturbance, mood disturbance, and anxiety; I10 Essential (primary) hypertension; E78.00 Pure hypercholesterolemia, unspecified; Z87.11 Personal history of peptic ulcer disease; Z98.61 Coronary angioplasty status; Z91.041 Radiographic dye allergy status; Z88.0 Allergy status to penicillin
CPT/HCPCS: 36415; 71045; 80053; 81003; 83735; 84484; 85025; 93005; 93880; 96360; 99285; J7030; J7121